=== PATIENT | male | born 1965 | race Caucasian/White ===

== ENCOUNTER → 2016-09-23 | Outpatient (CLI) | payer OTHER ==
[2014-01-17 18:26] VITALS: BP 130/68
[2016-09-23 07:11] LABS: BASO % 1 % (0-3); EOS % 2 % (0-3); HEMOGLOBIN 15.3 g/dL (13.0-17.5); LYMPH # 2.3 x10^3/uL (1.0-4.8); LYMPH % 48 % (24-48); MEAN CORPUSCULAR HEMOGLOBIN 31 pg (25-35); MEAN CORPUSCULAR HGB CONC 34 g/dL (31-37); MEAN CORPUSCULAR VOLUME 91 fL (79-100); MONO % 12 % (0-9); NEUT % 38 % (31-73); PLATELET COUNT 192 x10^3/uL (140-400); RED BLOOD COUNT 4.95 x10^6/uL (4.30-5.70); RED CELL DISTRIBUTION WIDTH 13.1 % (11.5-14.5); WHITE BLOOD COUNT 4.7 x10^3/uL (4.0-11.0)
[2016-09-23 07:33] LABS: ALBUMIN 3.9 g/dL (3.4-5.0); CALCIUM 9.1 mg/dL (8.5-10.1); GFR 78.8; POTASSIUM 3.9 mmol/L (3.5-5.1); TOTAL BILIRUBIN 0.5 mg/dL (0.2-1.0); TOTAL PROTEIN 7.8 g/dL (6.4-8.2)
[2016-09-23 07:34] LABS: CHOLESTEROL/HDL RATIO 4.9
[2016-09-23 08:10] LABS: FREE T4 0.83 ng/dL (0.76-1.46)
[2016-09-23 12:17] LABS: TESTOSTERONE TOTAL 438 ng/dL (264-916)
== END | disposition home or self-care (01) ==
LOC: LAB 06:42
PROVIDERS: ATTEND Internal Medicine
DX: Z12.5 Encounter for screening for malignant neoplasm of prostate (principal); Z00.00 Encounter for general adult medical examination without abnormal findings
CPT/HCPCS: 36415; 80053; 80061; 84403; 84439; 84443; 85027; G0103

== ENCOUNTER → 2016-11-08 | Outpatient (CLI) | payer OTHER ==
[2014-01-17 18:26] VITALS: BP 130/68
--- NOTE | 2016-11-08 12:48 | RAD ---
Cervical spine, 3 views, 11/08/2016: History: Neck and shoulder pain No fracture or dislocation is identified. The intervertebral disc spaces are well-maintained. There are mild degenerative changes involving scattered facet joints. There are small cervical ribs, right greater than left. The prevertebral soft tissues are unremarkable. IMPRESSION: 1. Mild degenerative change at scattered facet joints. 2. No acute cervical spine abnormality is detected.
== END | disposition home or self-care (01) ==
LOC: RAD 06:54
PROVIDERS: ATTEND Internal Medicine
DX: S16.1XXA Strain of muscle, fascia and tendon at neck level, initial encounter (principal); X58.XXXA Exposure to other specified factors, initial encounter; Y93.89 Activity, other specified; Y92.89 Other specified places as the place of occurrence of the external cause; Y99.8 Other external cause status
CPT/HCPCS: 72040

== ENCOUNTER → 2016-11-19 | Outpatient (CLI) | payer OTHER ==
[2014-01-17 18:26] VITALS: BP 130/68
--- NOTE | 2016-11-19 12:46 | KCIC ---
MR of the right elbow Indication: Pain for a few months. Technique: Standard multiplanar sequences are obtained. Findings: Mild motion degradation. Anterior: Mild signal within the biceps tendon, with mild surrounding fluid, at the radial attachment compatible with mild tendinosis. No rupture or high-grade tear. Brachialis tendon is intact. Posterior: The triceps tendon and insertion are intact. Medial: Common flexor tendon and ulnar collateral ligament are intact. Lateral: Mild common extensor tendinosis without measurable tear. Radial collateral and lateral ulnar collateral ligaments are intact. Fluid: No significant effusion. Joints: No advanced DJD. Bones: No focal lesion. No acute fracture. Soft tissues: No concerning edema or fluid accumulation Ulnar nerve: Unremarkable Impression: 1. Mild insertional biceps tendinosis without high-grade tear or rupture. 2. Mild common extensor tendinosis. Electronically signed by: Dao Godwin MD (11/19/2016 12:43 PM) [facility]
--- NOTE | 2016-11-19 13:30 | KCIC ---
MR of the right wrist Indication: Pain for a few months. Technique: Standard multiplanar sequences are obtained. Findings: Triangular fibrocartilage: Intact. Ulnar minus variance. Extensor carpi ulnaris tendon: Tendinosis with mild increased signal. No dislocation or rupture. Other extensor compartments: Intact Flexor tendons: Intact Median nerve: Unremarkable Scapholunate ligament: Mild degenerative signal, but no evidence of a through and through tear. No significant lunate tilt. Lunotriquetral ligament: No evidence of a tear. Fluid: No significant effusion. Joints: No advanced DJD. Bones: No lesion or acute fracture Soft tissues: Small pocket of fluid just proximal to the pisotriquetral joint measuring 5 mm, may represent a very small ganglion versus fluid in a synovial recess from the joint. Impression: 1. Mild extensor carpi ulnaris tendinosis. 2. Mild degenerative scapholunate ligament signal without evidence of an actual tear. Electronically signed by: Dao Godwin MD (11/19/2016 1:26 PM) [facility]
--- NOTE | 2016-11-19 13:30 | KCIC ---
MRI Cervical Spine Without Contrast History: Right cervical radiculitis, right arm and neck pain for a few months Technique: Multiplanar, multi sequential noncontrast MR imaging was performed of the cervical spine. Comparison: None Findings: There is some motion degradation. Cervical vertebral body stature is preserved. There is negligible anterior spondylolisthesis C4-5. Intervertebral disc spaces are mostly preserved, minimal narrowing at C4-5. Cervical cord caliber is within normal limits without focal signal abnormality. There is no significant abnormality cervical medullary junction. C2-C3: Spinal canal and neural foramina are adequate. C3-C4: Neural foramina and spinal canal are adequate. C4-C5: There is severe right facet hypertrophic change. Spinal canal and left neural foramen are adequate. There is moderate to severe narrowing of the right neural foramen. C5-C6: Spinal canal is adequate. There is moderate to severe facet hypertrophic change bilaterally. There is mild posterior narrowing of the neural foramina greater on the left. C6-C7: Spinal canal and neural foramina are adequate. There is bilateral facet hypertrophic change. C7-T1: Neural foramina and spinal canal are adequate. Impression: 1. There is no significant cervical spinal stenosis. 2. There is mild degenerative disc disease C4-5. 3. There is negligible anterior spondylolisthesis at C4-5. There is multilevel facet degenerative change. 4. There is moderate to severe narrowing of the right C4-5 neural foramen, minimal narrowing bilaterally at C5-6. Electronically signed by: Finesse Perez MD (11/19/2016 1:26 PM) [email or web address]
== END | disposition home or self-care (01) ==
LOC: KCIC MRI 11:23
PROVIDERS: ATTEND Internal Medicine
DX: M50.11 Cervical disc disorder with radiculopathy, high cervical region (principal); M43.12 Spondylolisthesis, cervical region
CPT/HCPCS: 72141; 73221

== ENCOUNTER → 2017-01-03 | Outpatient (CLI) | payer OTHER ==
[2014-01-17 18:26] VITALS: BP 130/68
[~2017-01-03] MED LIST: IOHEXOL 180 MG/ML 10 ML VIAL. ONE; methylPREDNISolone ACETATE 40 MG/ML VIAL. ONE; methylPREDNISolone ACETATE 80 MG/ML VIAL. ONE
--- NOTE | 2017-01-03 18:15 | PAIN ---
DATE OF SERVICE: 01/03/2017 INITIAL CONSULTATION CHIEF COMPLAINT: Neck and right upper extremity pain. HISTORY OF PRESENT ILLNESS: This is a 51-year-old male who presents with history of pain in the base of the neck and right upper extremity for about 2 to 3 months without any specific injury or action he is aware of. It happed fairly suddenly, but without any injury. The patient reports radiating from the base of the neck in the right shoulder also in the superior aspect as well as the anterior, posterior into the anterior aspect of the right upper arm occasionally with some pain in the right forearm and elbow mostly in the shoulder and neck itself. The patient reports it is sharp, stabbing, throbbing, shooting, changes during the day, worse with activity, worse with repetitive motions of the hands or reaching above his hand also difficulty sleeping as it is causing some pain that awaken him from sleep about every 4-5 hours. The patient reports it does not affect his bowel or bladder control or his ability to walk, but has some significant pain with sleeping, repetitive motion of the upper extremity. The patient is very active and is beginning to inhibit his activities of daily living and working is becoming more uncomfortable to the extent as well. The patient has had some physical therapy done which was helpful, but mostly just stretching exercises, has also had a MRI, EMG and MRI of cervical spine showing at C4-C5, severe right facet hypertrophic changes in the spinal canal, left neural foraminal adequate with moderate to severe narrowing of the right neural foramen, and bilateral foraminal narrowing at the C5-C6 level, but only minimally. The patient rates his disability ranging from 0-10, 10 being the worst. It is 0 with family and home responsibilities, 2 with recreation, and 0 with social activity, occupation can be as high as a 5, 0 with sexual behavior, self care and life support activities. The patient reports no loss of motor function with significant pain is somewhat fatigability in the right arm compared to the left with motion and repetitive motion. PAST MEDICAL HISTORY: Significantly for only the current pain condition. No significant medical history. No previous surgeries. The patient rates his pain a 4 on a scale of 10 at the worst with turning his head to the right side past 45 degrees. CURRENT MEDICATIONS: Include [id number] ibuprofen, Tylenol. No other medications, prescription that he is taking. ALLERGIES: The patient has no known drug allergies. FAMILY HISTORY: Significant for no major medical problems or conditions that he is aware of. 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 REVIEW OF SYSTEMS: The patient's review of systems is positive for those items mentioned in history of present illness. All systems reviewed and otherwise negative. It is complete, full and well documented on the patient's chart. PHYSICAL EXAMINATION: VITAL SIGNS: The patient's blood pressure is 113/80, pulse is 76, respirations 16, temperature 98.1 degrees Fahrenheit. Height 5 feet 10 inches, weight is 207 pounds. GENERAL: The patient is awake, alert, oriented, appropriate, very pleasant demeanor. HEENT: Head shows normocephalic, atraumatic. Extraocular movements are intact and symmetrical. Oral cavity shows mucous membranes moist and pink. Dentition is intact. NECK: Shows anterior throat supple without palpable lymphadenopathy noted. Swallow reflex is symmetrical. CHEST: Shows normal on inspection. Breath sounds clear to auscultation bilaterally. HEART: Shows S1 and S2 clear. ABDOMEN: Soft, nontender, nondistended. No palpable organomegaly is noted. No rebound or guarding demonstrated. BACK: Shows spine grossly midline, normal-appearing cervical lordotic curvature, thoracic kyphotic curvature, and lumbar lordotic curvature. Cervical paraspinous musculature is symmetrical with inspection. On palpation shows some mild tenderness with inferior aspect of the right side of the superior and medial trapezius as well as the inferior cervical paraspinous musculature, but the left side is nontender. The patient shows full rotational motion of cervical spine, both laterally greater than 45 degrees right and left with some minor pain reported with 45 degrees rotation in the past on the right side, but not to the left with full extension, full forward flexion was performed without significant pain reported. Upper extremities showed deep tendon reflexes 2+ in the biceps and triceps tendons. Motor exam is strong with 5/5 youth associate strength, biceps and triceps flexion and are symmetrical. Peripheral pulses are 2+ radial distribution. No peripheral edema is noted. No clubbing, no cyanosis. The patient's shoulder shrug is strong and intact without loss of strength on resistance. The patient reports some mild discomfort with resistance on the right side in the base of the neck and shoulder, but not radiating into the arm. This is true with abduction of the shoulder to 90 degrees with no loss of strength or resistance, some mild pain in the base of the right neck and shoulder, on the right side only. The patient's skin shows warm and dry, no edema, no previous bruises, lesions or rashes. IMPRESSION: 1. This is a 51-year-old male with approximately a 2-3 month history of increasing pain in the base of the neck and right upper extremity in a radicular fashion. 2. MRI scan of cervical spine as noted. PLAN: Options were discussed with the patient including conservative medical management, physical therapy, interventional techniques and he would like to pursue interventional techniques. We discussed a cervical epidural steroid injection using description as well as anatomical models to describe the procedure. Risks were then discussed including, but not limited to bleeding, infection, possibility of epidural hematoma, subsequent neurologic compromise, dural puncture, headaches, spinal cord and/or nerve damage, side effects of steroid medication and poor results regarding pain control. The patient understands and wishes to proceed. The patient will return to clinic in approximately 2 weeks for followup, was counseled on return appointment, activity level and side effects to be aware of. DIAGNOSES: Cervical radiculopathy with cervical degenerative disk disease. PROCEDURE: Cervical epidural steroid injection in translaminar approach at the C6-C7 level using C-arm fluoroscopic guidance and a sterile prep and drape using local anesthetic. MEDICATIONS INJECTED: A total of 120 mg Depo-Medrol plus 5 preservative-free normal saline and 2 mL contrast. CONDITION AT DISCHARGE: Stable. The patient tolerated procedure well, had no complications. JOHNNA PARKS MD DR: RAYA/santhosh JOB#: [id number] / [id number]
== END | disposition home or self-care (01) ==
LOC: PNCL 12:45
PROVIDERS: ATTEND Anesthesiology
DX: M50.123 Cervical disc disorder at C6-C7 level with radiculopathy (principal)
CPT/HCPCS: 62321; J1030; J1040

== ENCOUNTER → 2017-01-18 | Outpatient (CLI) | payer OTHER ==
[2014-01-17 18:26] VITALS: BP 130/68
--- NOTE | 2017-01-19 01:01 | PAIN ---
DATE OF SERVICE: 01/18/2017 DIAGNOSES: Cervical radiculopathy, cervical degenerative disk disease. HISTORY OF PRESENT ILLNESS: The patient is a 51 male who returns for followup status post cervical epidural steroid injection x 1. The patient with an 80% improvement until about the last 4-5 days. The patient reports pain is beginning to return in the base of his neck and shoulder, a little more on the right than the left only with excessive repetitive motion with the right upper extremity and activity, also awakened from sleep occasionally, but not every night. The patient reports the pain is a 6 on a scale of 10 at its worst, is a 3 at average and is a 2 at its least and it is a 2 currently. The patient reports still some aching and dull pain occasionally tight and shooting with some radiating pain, but it has been off and on and it has been much more tolerable after his last injection he has been increasing activity with greater ease and comfort, sleeping usually sleeps on his right side, which has been bothering the neck and the shoulder to some extent, but not every night until the last 4-5 days as noted. The patient reports no new motor or sensory deficits, no new changes. PHYSICAL EXAMINATION: VITAL SIGNS: Today, the patient's blood pressure is 130/82, pulse 67, respirations 18, temperature 98.1 degrees Fahrenheit. Height 5 feet 10 inches, weight is 206 pounds. GENERAL: The patient is awake, alert, oriented, appropriate, very pleasant demeanor. HEENT: Head shows normocephalic, atraumatic. Extraocular movements are intact, symmetrical. Oral cavity shows mucous membranes moist and pink. Dentition is intact. NECK: Shows anterior throat supple without palpable lymphadenopathy noted. Swallow reflex is symmetrical. CHEST: Shows normal with inspection. Breath sounds clear to auscultation bilaterally. HEART: Shows S1, S2 clear. No murmurs auscultated. ABDOMEN: Soft, nontender, nondistended. No palpable organomegaly is noted. No rebound or guarding demonstrated. BACK: Shows spine grossly in the midline, normal appearing cervical lordotic curvature, thoracic kyphotic curvature, and lumbar lordotic curvature. Cervical paraspinous musculature shows symmetrical inspection with palpation shows some moderate tenderness only diffusely in the middle and lower distribution of paraspinous muscles, slightly more on the right than the left, but without radiation, without trigger points. The patient has full rotational motion of cervical spine, both laterally greater than 45 degrees right and left well as extension and full forward flexion without pain or difficulty reported. EXTREMITIES: Upper extremities show deep tendon reflexes at 2+ in the biceps, triceps tendons. Motor exam is strong with 5/5 news editor strength, bicep and tricep flexion and symmetrical. Peripheral pulses are 2+ radial distribution. No peripheral edema is noted. Options were discussed with the patient. The patient's old chart was reviewed. His current medication regimen updated. Current review of systems updated today as well and we will proceed with a second cervical epidural steroid injection today with fluoroscopic guidance. Risks were again discussed including, but not limited to bleeding, infection, possibility of epidural hematoma, subsequent neurologic compromise, dural puncture, headaches, spinal cord and/or nerve damage, side effects of steroid medication and poor results regarding pain control. The patient understands and wished to proceed. The patient will return to the clinic in approximately 2 weeks for followup. He was counseled to return appointment, activity level and side effects to be aware of. DIAGNOSIS: Cervical radiculopathy with cervical degenerative disk disease. PROCEDURE: Cervical epidural steroid injection, translaminar approach C6-C7 level using C-arm fluoroscopic guidance under sterile prep and drape using local anesthetic. Medication injected total of 120 mg Depo-Medrol plus 5 mL very preservative-free normal saline and 2 mL of isovue contrast. CONDITION AT DISCHARGE: Stable. The patient tolerated procedure well, had no complications. JOHNNA PARKS MD DR: RAYA/santhosh JOB#: [id number] / [id number]
== END ==
LOC: PNCL 13:04
PROVIDERS: ATTEND Anesthesiology
DX: M50.123 Cervical disc disorder at C6-C7 level with radiculopathy (principal)
CPT/HCPCS: 62321; J1030; J1040

== ENCOUNTER → 2019-03-23 | Day surgery (SDC) | payer OTHER ==
[~2019-03-23] MED LIST changes: -IOHEXOL 180 MG/ML 10 ML VIAL. ONE; +IV RINGERS,LACTATED 1000ML 1,000 ML IV ONE; +LIDOCAINE 2% PF 5 ML VIAL. ONE; +PROPOFOL 40 ML IV ONE; -methylPREDNISolone ACETATE 40 MG/ML VIAL. ONE; -methylPREDNISolone ACETATE 80 MG/ML VIAL. ONE
--- NOTE | 2019-03-23 08:00 | CONS ---
DATE OF CONSULTATION: REFERRING PHYSICIAN: Meenu Logan MD REASON FOR CONSULTATION: Colorectal screening. HISTORY OF PRESENT ILLNESS: This is a 53-year-old male whose past medical history is noncontributory, seen for a screening colonoscopy. There is a family history of colon cancer with his sister who is in her early 50s. There has been no diarrhea or constipation. No melena and/or hematochezia. Weight and appetite are stable and he is otherwise without additional complaints. PAST MEDICAL HISTORY: Noncontributory. ALLERGIES: None. MEDICATIONS: None. FAMILY AND SOCIAL HISTORY: Significant for colon cancer with his sister recently. REVIEW OF SYSTEMS: Per records. PHYSICAL EXAMINATION: GENERAL: Reveals a well-nourished, well-developed male who is alert and cooperative, in no acute distress. VITAL SIGNS: Temperature 97.7, pulse 60 and respirations 20. LUNGS: Clear. CARDIOVASCULAR: Reveals an S1, S2 without S3, S4 or appreciable murmur. ABDOMEN: Reveals a soft abdomen, normal bowel sounds, without appreciable hepatosplenomegaly. EXTREMITIES: Reveals no cyanosis, clubbing or edema. IMPRESSION: Colorectal screening is warranted at this time. Risks and benefits of procedure including risk of hemorrhage and perforation requiring operation were discussed. The patient is willing to proceed. ZAID WORKMAN MD DR: MYRANDA/santhosh JOB#: [id number] / [id number] MEENU Montoya MD
[2019-03-23 08:02] VITALS: BP 117/72
== END | disposition home or self-care (01) ==
LOC: ENDOS 06:29
PROVIDERS: ATTEND Internal Medicine Gastroenterology
DX: Z12.11 Encounter for screening for malignant neoplasm of colon (principal); K64.0 First degree hemorrhoids; K57.30 Diverticulosis of large intestine without perforation or abscess without bleeding; E66.9 Obesity, unspecified; Z68.44 Body mass index [BMI] 60.0-69.9, adult; Z80.0 Family history of malignant neoplasm of digestive organs
CPT/HCPCS: 45378; J2001; J2704

== ENCOUNTER 2019-04-26 21:32 | Emergency (ER) | payer OTHER ==
[~2019-04-26] VITALS: Ht 175.3 cm; Wt 96.0 kg
--- NOTE | 2019-04-26 21:58 | PHYS DOC ---
Past Medical History Past Medical History: No Pertinent History Past Surgical History: No Surgical History Smoking Status: Never Smoker Alcohol Use: None Drug Use: None Adult General Chief Complaint Chief Complaint: BACK PAIN - NO INJURY [facility] HPI Patient is a 53 year old male who presents secondary to complaint of progressive low back pain since yesterday without known injury or overuse. Patient complains of pain initially in the right lumbar region which then migrated to the left. He has no radiculopathy down the legs, no cell anesthesia, no loss of bowel or bladder control. His did give him 800 mg of Skelaxin, Tylenol, ibuprofen, [place] earlier with minimal relief. His pain is worse with movement. He has no tenderness to palpation. He denies dysuria or hematuria. Review of Systems Review of Systems All other ROS is negative unless otherwise stated in HPI Current Medications Current Medications Current Medications Medications (Trade) Dose Ordered Sig/Sandra Start Time Stop Time Status Last Admin Dose Admin Ketorolac Tromethamine (Toradol Im) 60 mg 1X ONCE 04/26/19 22:00 04/26/19 22:01 DC 04/26/19 22:16 60 MG Orphenadrine Citrate (Norflex) 60 mg 1X ONCE 04/26/19 22:00 04/26/19 22:01 DC 04/26/19 22:16 60 MG Prednisone (Prednisone) 50 mg 1X ONCE 04/26/19 22:00 04/26/19 22:01 DC 04/26/19 22:15 50 MG Allergies Allergies Allergies Coded Allergies Type Severity Reaction Last Updated Verified No Known Drug Allergies 03/23/19 No Physical Exam Physical Exam See above Constitutional: Well developed, well nourished, uncomfortable, moves slow, non- toxic appearance. [] HENT: Normocephalic, atraumatic, bilateral external ears normal, oropharynx moist, no oral exudates, nose normal. [] Eyes: PERRLA, EOMI, conjunctiva normal, no discharge. [] Neck: Normal range of motion, no tenderness, supple, no stridor. [] Cardiovascular:Heart rate regular rhythm, no murmur [] Lungs & Thorax: Bilateral breath sounds clear to auscultation [] Abdomen: Bowel sounds normal, soft, no tenderness, no masses, no pulsatile masses. [] Skin: Warm, dry, no erythema, no rash. [] Back: No tenderness, no CVA tenderness, lumbar pain b/l with movement Extremities: No tenderness, no cyanosis, no clubbing, ROM intact, no edema. [] Neurologic: Alert and oriented X 3, normal motor function, normal sensory function, no focal deficits noted. [] Current Patient Data Vital Signs Vital Signs Date Time Temp Pulse Resp B/P (MAP) Pulse Ox O2 Delivery O2 Flow Rate FiO2 04/26/19 21:35 98.6 86 18 151/82 (105) 99 Room Air 98.6 Lab Values Laboratory Tests Test 04/26/19 21:40 Urine Collection Type Unknown Urine Color Yellow Urine Clarity Clear Urine pH 6.0 Urine Specific [place] 1.010 Urine Protein Negative mg/dL (NEG-TRACE) Urine Glucose (UA) Negative mg/dL (NEG) Urine Ketones (Stick) Negative mg/dL (NEG) Urine Blood Negative (NEG) Urine Nitrite Negative (NEG) Urine Bilirubin Negative (NEG) Urine Urobilinogen Dipstick 0.2 mg/dL (0.2 mg/dL) Urine Leukocyte Esterase Negative (NEG) Urine RBC Occ /HPF (0-2) Urine WBC 0 /HPF (0-4) Urine Squamous Epithelial Cells Occ /LPF Urine Bacteria 0 /HPF (0-FEW) EKG EKG [] Radiology/Procedures Radiology/Procedures LUMBAR SPINE MIN 4V History: Low back pain. Technique: 5 views of the lumbar spine. Comparison: None. Findings: Normal vertebral body height and alignment. Mild multilevel degenerative disc changes. Multilevel facet arthropathy. Impression: 1. No acute osseous abnormality. 2. Mild multilevel lumbar spondylosis.[] Course & Med Decision Making Course & Med Decision Making Pertinent Labs and Imaging studies reviewed. (See chart for details) 2156: We'll obtain lumbar x-rays and give IM Toradol and Norflex and oral prednisone. Send urinalysis as well. 6: Patient's son better at this time. We'll start him on Flexeril, and temperature is and penicillin. Follow-up with primary care physician next week if symptoms are not improving. Dragon Disclaimer Dragon Disclaimer This electronic medical record was generated, in whole or in part, using a voice recognition dictation system. Departure Departure Impression: Primary Impression: Acute low back pain Disposition: HOME, SELF-CARE Condition: STABLE Referrals: MICHELLE OSMAN MD (PCP) Follow-up next week if you have ongoing symptoms. Patient Instructions: Back Pain, Adult Scripts Prednisone (PREDNISONE) 50 Mg Tablet 1 TAB PO DAILY, #5 TAB Prov: SABINA EVANS DO 04/26/19 Diclofenac Sodium (DICLOFENAC SODIUM) 75 Mg Tablet.dr 1 TAB PO BID for 10 Days, #20 TAB 1 Refill Prov: SABINA EVANS DO 04/26/19 Cyclobenzaprine Hcl (CYCLOBENZAPRINE HCL) 10 Mg Tablet 1 TAB PO TID, #21 TAB Prov: SABINA EVANS DO 04/26/19 SABINA EVANS DO Apr 26, 2019 21:57
[2019-04-26] MEDS ORDERED: ORPHENADRINE CITRATE 60 MG/2 ML VIAL. IM ONE (22:00)
[2019-04-26] MEDS ORDERED: predniSONE 10 MG TABLET PO ONE (22:00)
[2019-04-26] MEDS ORDERED: KETOROLAC 60 MG/2 ML VIAL. IM ONE (22:00)
[2019-04-26 22:05] LABS: BILIRUBIN,URINE NEGATIVE (NEG); CLARITY,URINE CLEAR; COLOR,URINE YELLOW; NITRITE,URINE NEGATIVE (NEG); PROTEIN,URINE NEGATIVE (NEG-TRACE); UROBILINOGEN,URINE 0.2 mg/dL (0.2 mg/dL)
[2019-04-26 22:14] LABS: BACTERIA,URINE 0 /HPF (0-FEW); RBC,URINE OCC /HPF (0-2); SQUAMOUS EPITHELIAL CELL,UR OCC /LPF; WBC,URINE 0 /HPF (0-4)
--- NOTE | 2019-04-26 23:22 | RAD ---
LUMBAR SPINE MIN 4V History: Low back pain. Technique: 5 views of the lumbar spine. Comparison: None. Findings: Normal vertebral body height and alignment. Mild multilevel degenerative disc changes. Multilevel facet arthropathy. Impression: 1. No acute osseous abnormality. 2. Mild multilevel lumbar spondylosis. Electronically signed by: Deep Mejía DO (04/26/2019 11:19 PM) [id number]
[2019-04-26] MEDS ORDERED: DICL75TA PO (23:29)
[2019-04-26] MEDS ORDERED: CYCL10TA2 PO (23:29)
[2019-04-26] MEDS ORDERED: PRED50TA PO (23:29)
[2019-04-26 23:30] VITALS: BP 130/88
== END 2019-04-26 23:31 | disposition home or self-care (01) ==
LOC: ER 21:32
DX: M54.5 Low back pain (principal)
CPT/HCPCS: 72110; 81001; 96372; 99284; J1885; J2360; J7512

== ENCOUNTER → 2019-04-26 | Outpatient (CLI) | payer OTHER ==
[2019-03-23 08:02] VITALS: BP 117/72
[~2019-04-26] MED LIST changes: +CYCL10TA2 PO; +DICL75TA PO; -IV RINGERS,LACTATED 1000ML 1,000 ML IV ONE; -LIDOCAINE 2% PF 5 ML VIAL. ONE; +PRED50TA PO; -PROPOFOL 40 ML IV ONE
[2019-04-26 07:43] LABS: BASO % 1 % (0-3); EOS # 0.1 x10^3/uL (0.0-0.7); EOS % 2 % (0-3); HEMATOCRIT 46.1 % (39.0-53.0); HEMOGLOBIN 15.7 g/dL (13.0-17.5); LYMPH # 2.1 x10^3/uL (1.0-4.8); LYMPH % 51 % (24-48); MEAN CORPUSCULAR HEMOGLOBIN 31 pg (25-35); MEAN CORPUSCULAR HGB CONC 34 g/dL (31-37); MEAN CORPUSCULAR VOLUME 91 fL (79-100); MONO # 0.5 x10^3/uL (0.0-1.1); MONO % 11 % (0-9); NEUT # 1.5 x10^3/uL (1.8-7.7); NEUT % 36 % (31-73); PLATELET COUNT 237 x10^3/uL (140-400); RED BLOOD COUNT 5.07 x10^6/uL (4.30-5.70); RED CELL DISTRIBUTION WIDTH 13.4 % (11.5-14.5); WHITE BLOOD COUNT 4.2 x10^3/uL (4.0-11.0)
[2019-04-26 08:11] LABS: ALBUMIN 3.9 g/dL (3.4-5.0); ALBUMIN/GLOBULIN RATIO 1.1 (1.0-1.7); CALCIUM 9.3 mg/dL (8.5-10.1); GFR 78.2; POTASSIUM 4.2 mmol/L (3.5-5.1); TOTAL BILIRUBIN 0.4 mg/dL (0.2-1.0); TOTAL PROTEIN 7.4 g/dL (6.4-8.2)
[2019-04-26 08:13] LABS: CHOLESTEROL/HDL RATIO 4.2
== END | disposition home or self-care (01) ==
LOC: LAB 07:07
PROVIDERS: ATTEND Family Medicine
DX: R07.89 Other chest pain (principal)
CPT/HCPCS: 36415; 80053; 80061; 84436; 84443; 85025

== ENCOUNTER → 2019-08-15 | Outpatient (CLI) | payer OTHER ==
--- NOTE | 2019-08-15 11:34 | CARD ---
MR#: [id number] Date of Study: 08/15/2019 Ordering Physician: MARGARET BEAVERS, Referring Physician: MARGARET BEAVERS, Tech: Connie Waggoner [facility] APPROVED REPORT EXAM: Two-dimensional and M-mode echocardiogram with Doppler and color Doppler. Other Information Quality : Good INDICATION Chest Pain 2D DIMENSIONS RVDd3.0 (2.9-3.5cm)Left Atrium(2D)3.5 (1.6-4.0cm) IVSd0.9 (0.7-1.1cm)Aortic Root(2D)3.0 (2.0-3.7cm) LVDd4.9 (3.9-5.9cm)LVOT Diameter2.2 (1.8-2.4cm) PWd0.9 (0.7-1.1cm)LVDs3.5 (2.5-4.0cm) FS (%) 30.0 %SV65.6 ml LVEF(%)57.0 (>50%) Aortic Valve AoV Peak Yonathan.143.4cm/sAoV VTI23.7cm AO Peak GR.8.2mmHgLVOT Peak Yonathan.153.5cm/s AO Mean GR.4mmHgAVA (VMAX)4.02cm2 MADDY (VTI)4.54fm5UQ P 1/2 [id number] Mitral Valve MV E Lhayefjd10.8cm/sMV DECEL IWLK626vs MV A Yhvgzfyo53.5cm/sE/A Ratio0.7 Tricuspid Valve TR P. Fjdjutva947sx/sRAP ZFDYRMSQ3fyMg TR Peak Gr.76dcSaHBSR93yfTq Pulmonary Vein S1 Tcgznxgy05.5cm/sD2 Twczarac37.7cm/s LEFT VENTRICLE The left ventricle is normal size. There is normal left ventricular wall thickness. Left ventricle sy stolic function is normal. The Ejection Fraction is 55%. There is normal LV segmental wall motion. Tr ansmitral Doppler flow pattern is Grade I-abnormal relaxation pattern. RIGHT VENTRICLE The right ventricle is normal size. The right ventricular systolic function is normal. ATRIA The left atrium size is normal. The right atrium size is normal. The interatrial septum is intact wit h no evidence for an atrial septal defect or patent foramen ovale as noted on 2-D or Doppler imaging. AORTIC VALVE The aortic valve is calcified but opens well. Doppler and Color Flow revealed trace aortic regurgitat ion. There is no significant aortic valvular stenosis. MITRAL VALVE The mitral valve is normal in structure and function. There is no evidence of mitral valve prolapse. There is no mitral valve stenosis. Doppler and Color-flow revealed trace mitral regurgitation. TRICUSPID VALVE The tricuspid valve is normal in structure and function. Doppler and Color Flow revealed trace tricus pid regurgitation. The PA pressure was estimated at 22 mmHg. There is no tricuspid valve stenosis. PULMONIC VALVE The pulmonary valve is normal in structure and function. Doppler and Color Flow revealed no pulmonic valvular regurgitation. There is no pulmonic valvular stenosis. GREAT VESSELS The aortic root is normal in size. The ascending aorta is normal in size. The IVC is normal in size a nd collapses >50% with inspiration. PERICARDIAL EFFUSION There is no evidence of significant pericardial effusion. Critical Notification Critical Value: No <Conclusion> Left ventricle systolic function is normal. The Ejection Fraction is 55%. There is normal LV segmental wall motion. Transmitral Doppler flow pattern is Grade I-abnormal relaxation pattern. Trace mitral regurgitation. Trace tricuspid regurgitation. The PA pressure was estimated at 22 mmHg. There is no evidence of significant pericardial effusion. Signed by : Peter Ballesteros, Electronically Approved : 08/15/2019 11:34:09
--- NOTE | 2019-08-15 11:54 | RAD ---
MR#: [id number] Date of Study: 08/15/2019 Ordering Physician: MARGARET BEAVERS, Referring Physician: MARYLU CRAIG Tech: RT Brayden (R) (N) APPROVED REPORT Test Type: Exercise Stress Nurse/Tech: Irena Charles RN Test Indications: Chest Pain Cardiac History: No known cardiac Medications: See Electronic Medical Record Medical History: See Electronic Medical Record Resting ECG: SR Resting Heart Rate: 61 bpm Resting Blood Pressure: 128/77mmHg Pretest Chest Pain: No chest pain Nurse/Tech Notes S1,S2 and lungs clear to auscultation. Consent: The procedure was explained to the patient in lay terms. Informed consent was witnessed. Miguel eout was entered into [employer]. History and Stress Test performed by SHAHID Mandujano Stress Symptoms Fatigue POST EXERCISE Reason for Termination: Reached target heart rate, Fatigue Target HR: Yes Max HR: 157 bpm 111% of Maximum Predicted HR: 141 bpm Exercise duration: 10:00 min:sec, 4 Stage Exercise capacity: 13.4METs Max Blood Pressure: 146/70mmHg Blood Pressure response to exercise: Normal blood pressure response during stress. Heart Rate response to exercise: WNL Chest Pain: No. Arrhythmia: No. ST Change: Yes. Very slight ST elevation in leads v3-v5 with exercise which returned to baseline by e nd of study INTERPRETATION Stress EKG Conclusion: Baseline EKG showed sinus rhythm. Non-diagnostic changes at peak stress. No arrhythmias. Imaging Protocol IMAGE PROTOCOL: Rest Tc-99m/stress Tc-99m 1 day Rest: Stress: Viability: Radiopharm.Tc99m KqcdtvpocYs98r Sestamibi Opcg29hIc 30.4mCi Duration 15min. 10min. Img Date 08/15/2019 08/15/2019 Inj-Img Upbm39cgk. 60min. Rest Admin Site:IV - Right WristAdministrator:SHAHID Mandujano Stress Admin Site: IV - Right WristAdministrator: SHAHID Mandujano STRESS DATA End Diast. Vol.106.0mlLVEDV index BSA51.0ml End Syst. Vol.35.0mlLVESV index BSA17.0ml Myocardial Fjli171.0gEject. Sqbiwgtf38.0% Stress Scores Regional WT1.00Summed WT6.00 Regional WM0.00Summed WM2.00 Study quality was good. Left Ventricular size was Normal at Rest and Stress. Lung uptake was . Left Ventricular ejection fraction is 67%. The rest and stress images show normal perfusion, normal contraction and thickening. LV Perf. Quant 17 Seg. SSS6.00 17 Seg. SRS1.00 17 Seg. SDS5.00 Stress Defect Extent (% LAD)13.80Rest Defect Extent (% LAD)6.90Rev. Defect Extent (% LAD)0.00 Stress Defect Extent (% LCX) 0.00Rest Defect Extent (% LCX)0.00Rev. Defect Extent (% LCX)0.00 Stress Defect Extent (% RCA)1.10Rest Defect Extent (% RCA)0.00Rev. Defect Extent (% RCA)0.00 Stress Defect Extent (% QUINTON)5.00Rest Defect Extent (% QUINTON)2.40Rev. Defect Extent (% QUINTON)0.00 Conclusion 1. Treadmill exercise cardioisotope stress test did not show any evidence of ischemia or infarct. 2. Normal left ventricular systolic function with ejection fraction calculated at 67%. 3. Patient had good activity tolerance. Low risk for cardiac events. Signed by : Peter Ballesteros, Electronically Approved : 08/15/2019 11:53:26
== END | disposition home or self-care (01) ==
LOC: NM 08:06
PROVIDERS: ATTEND Internal Medicine Cardiovascular Disease
DX: R07.9 Chest pain, unspecified (principal)
CPT/HCPCS: 78452; 93017; 93306; A9500

== ENCOUNTER 2020-09-19 06:49 | Emergency (ER) | payer OTHER ==
[~2020-09-19] VITALS: Ht 180.3 cm; Wt 93.1 kg
--- NOTE | 2020-09-19 07:32 | PHYS DOC ---
Past Medical History Past Medical History: No Pertinent History Past Surgical History: No Surgical History Smoking Status: Never Smoker Alcohol Use: None Drug Use: None General Adult EDM: Chief Complaint: ANKLE PROBLEM HPI: HPI: 55-year-old male who denies any significant past medical history presents the ED with complaints of left medial ankle pain has been progressively worsening for the past 3 weeks, minimal relief with Tylenol ibuprofen. States he woke up today and felt as if the ankle is more swollen. Also complains of left heel pain, worse with weight bearing but states he can tolerate the pain. Is very active, "I never go to doctors and I don't like taking medications, but I want to get it checked out." No history of prior injury to this joint. No history of gout, pseudogout, osteoarthritis or rheumatoid arthritis. No associated fever, chills, dysuria, hematuria, urethral discharge, rash or increased warmth to the joint. Tennis shoes are only 6 months old. Cannot recall and new increased physical activity, trauma to the joint, running or new exercise program. is an rn in the ed. Review of Systems: Review of Systems: Constitutional: Denies fever or chills. [] Eyes: Denies change in visual acuity. [] HENT: Denies nasal congestion or sore throat. [] Respiratory: Denies cough or shortness of breath. [] Cardiovascular: Denies chest pain or edema. [] GI: Denies nausea, vomiting, : Denies dysuria or hematuria Musculoskeletal: Denies back pain or joint deformity Integument: Denies rash or diaphoresis Neurologic: Denies focal weakness or sensory changes. [] Lymphatic: Denies swollen glands. [] Psychiatric: Denies depression or anxiety. [] Heart Score: C/O Chest Pain: No Risk Factors: Risk Factors: DM, Current or recent (<one month) smoker, HTN, HLP, family history of CAD, obesity. Risk Scores: Score 0 - 3: 2.5% MACE over next 6 weeks - Discharge Home Score 4 - 6: 20.3% MACE over next 6 weeks - Admit for Clinical Observation Score 7 - 10: 72.7% MACE over next 6 weeks - Early Invasive Strategies Allergies: Allergies: Allergies Coded Allergies Type Severity Reaction Last Updated Verified No Known Drug Allergies 03/23/19 No Physical Exam: PE: Constitutional: Well developed, well nourished, healthy active male HENT: Normocephalic, atraumatic, Eyes: EOMI, conjunctiva normal, no discharge. Neck: Normal range of motion, supple, Cardiovascular: S1/2 present, regular rhythm Lungs & Thorax: Speaking in full sentences, bilateral equal chest rise, no tachypnea or increased work of breathing Skin: Warm, dry, no erythema, no rash. [] Extremities: no cyanosis, no lower extremity edema, right DP/PT pulses intact, no pain at right fibular head or knee or malleoli, pain is localized to the base of the calcaneus and just inferior to right medial malleoli, no plantar ecchymosis, is able to bear weight/normal plantarflexion and dorsiflexion, L5-S1 sensation intact, cap refill less than 1 second Neurologic: Alert and oriented X 3, normal motor function, normal sensory function, no focal deficits noted. [] Psychologic: Affect normal, judgement normal, mood normal. [] EKG: EKG: [] Radiology/Procedures: Radiology/Procedures: []IMAGING REPORT Signed PATIENT: LONNY LAYNE ACCOUNT: [id number] : 1965 LOCATION: ER AGE: 55 SEX: M EXAM STATUS: REG ER ORD. PHYSICIAN: BHANU MILLS DO REASON: left ankle apin PROCEDURE: FOOT LEFT 3V EXAM: XR FOOT_LEFT 3 VIEWS, XR EXAM OF ANKLE_LEFT 3V 09/19/2020 7:45 AM CLINICAL INDICATION: Left ankle pain COMPARISON: None TECHNIQUE: 3 views of the left foot and 3 views of the left ankle FINDINGS: Left foot: No acute fracture. Alignment is normal. Joint spaces are maintained. No soft tissue swelling. Left ankle: No acute fracture. Alignment is normal. The ankle mortise is symmetric and talar dome intact. No focal soft tissue abnormality. IMPRESSION: No acute osseous abnormality of the left ankle or left foot. Electronically signed by: Valentina Regan MD (09/19/2020 8:20 AM) [id number] DICTATED and SIGNED BY: VALENTINA REGAN MD DATE: 09/19/20 [id number] Course & Med Decision Making: Course & Med Decision Making Pertinent Labs and Imaging studies reviewed. (See chart for details) Concern for atraumatic left ankle and heel pain with no obvious fracture, bone spur or trauma on x-ray imaging. Labs with no leukocytosis, unremarkable uric acid level. Suspect overuse/poor foot support. Patient was splinted and given crutches and rice instructions. Will discharge home with strict ED return precautions were given for repeat injury, severe pain, neurologic deficits, skin color changes or swollen red hot swelling. Encouraged urgent outpatient follow- up with PMD and ortho prn for persistent pain, may benefit from repeat imaging if pain does not subside. Life-threatening processes were considered but are low suspicion at this time, given history, physical exam and ED workup. Pt was educated on all prescription medications and adverse effects. All patient's questions were answered and pt was stable at time of discharge. Life/limb-threatening differential includes but is not limited to, avascular necrosis, septic arthritis, malignancy, compartment syndrome, fracture/ligamentous injury/overuse, decompression sickness, seronegative spondyloarthropathies, trauma including dislocation/fracture, Lyme disease, lupus, arthritis differentials, gout/pseudogout or decompression sickness. I have spoken with the patient and/or caregivers. I explained the patient's condition, diagnoses and treatment plan based on the information available to me at this time. I have answered the patient and/or caregiver's questions and addressed any concerns. The patient and/or caregivers have a good understanding of patient's diagnosis, condition and treatment plan as can be expected at this point. Vital signs have been stable. Patient's condition is stable and appropriate for discharge from the emergency department. Patient will pursue further outpatient evaluation with primary care physician or other designated or consulting physician as outlined in the discharge instructions. The patient and/or caregivers are agreeable to this plan of care and follow-up instructions have been explained in detail. The patient and/or c aregivers have received these instructions in written form and have expressed an understanding of the discharge instructions. The patient and/or caregivers are aware that any significant change of condition or worsening of symptoms should prompt immediate return to this or the closest emergency department or call to 911. Alyssa Disclaimer: Alyssa Disclaimer: This electronic medical record was generated, in whole or in part, using a voice recognition dictation system. Departure Departure Impression: Primary Impression: Pain of left heel Additional Impression: Ankle pain, left Disposition: 01 HOME / SELF CARE / HOMELESS Condition: STABLE Referrals: MICHELLE OSMAN MD (PCP) for routine care, over the counter tylenol, ibuprofen or biofreeze prn for pain Patient Instructions: Ankle Pain, Crutch Use, RICE - Routine Care for Injuries Additional Instructions: FOLLOW UP WITH ORTHOPEDICS: FOR DEFINITIVE MANAGEMENT of ankle/heel pain, may benefit from repeat imaging Orthopaedic Sports Medicine Orthopaedic Surgery [facility] [address] [place], [address] [place] [address] OR [facility] [address], [place] [address] EMERGENCY DEPARTMENT GENERAL DISCHARGE INSTRUCTIONS Thank you for coming to [facility] Emergency Department (ED) today and trusting us with you care. We trust that you had a positive experience in our Emergency Department. If you wish to speak to the department management, you may call the Director at [phone]. YOUR FOLLOW UP INSTRUCTIONS ARE FOLLOWS: 1. Do you have a private Doctor? If you do not have a private doctor, please ask for a resource list of physicians or clinics that may be able to assist you with follow up care. ADDITIONAL INSTRUCTIONS AND INFORMATION: 1. Your care today has been supervised by a physician who is specially trained in emergency care. Many problems require more than one evaluation for a complete diagnosis and treatment. We recommend that you schedule your follow up appointment as recommended to ensure complete treatment of you illness or injury. If you are unable to obtain follow up care and continue to have a problem, or if your condition worsens, we recommend that you return to the ED. 2. We are not able to safely determine your condition over the phone nor are we able to give sound medical advice over the phone. For these safety reasons, if you call for medical advice we will ask you to come to the ED for further evaluation. 3. If you have any questions regarding these discharge instructions please call the ED at [phone]. SAFETY INFORMATION: In the interest of safety, wellness, and injury prevention; we encourage you to wear your sealbelt, if you smoke; quite smoking, and we encourage family to use a protective helmet for bicycling and other sporting events that present an increased risk for head injury. IF YOUR SYMPTOMS WORSEN OR NEW SYMPTOMS DEVELOP, OR YOU HAVE CONCERNS ABOUT YOUR CONDITION; OR IF YOUR CONDITION WORSENS WHILE YOU ARE WAITING FOR YOUR FOLLOW UP APPOINTMENT; EITHER CONTACT YOUR PRIMARY CARE DOCTOR, THE PHYSICIAN WHOSE NAME AND NUMBER YOU WERE GIVEN, OR RETURN TO THE ED IMMEDIATELY. [facility]ITAL[facility]ANU DO Sep 19, 2020 07:32
[2020-09-19 07:52] LABS: BASO % 1 % (0-3); EOS # 0.1 x10^3/uL (0.0-0.7); EOS % 2 % (0-3); HEMATOCRIT 42.8 % (39.0-53.0); HEMOGLOBIN 14.8 g/dL (13.0-17.5); LYMPH # 2.1 x10^3/uL (1.0-4.8); LYMPH % 48 % (24-48); MEAN CORPUSCULAR HEMOGLOBIN 31 pg (25-35); MEAN CORPUSCULAR HGB CONC 35 g/dL (31-37); MEAN CORPUSCULAR VOLUME 90 fL (79-100); MONO # 0.4 x10^3/uL (0.0-1.1); MONO % 10 % (0-9); NEUT # 1.7 x10^3/uL (1.8-7.7); NEUT % 39 % (31-73); PLATELET COUNT 230 x10^3/uL (140-400); RED BLOOD COUNT 4.75 x10^6/uL (4.30-5.70); RED CELL DISTRIBUTION WIDTH 12.9 % (11.5-14.5); WHITE BLOOD COUNT 4.5 x10^3/uL (4.0-11.0)
[2020-09-19] MEDS ORDERED: LIDOCAINE (700MG/PATCH) PATCH. TD SCH (08:00)
[2020-09-19 08:01] LABS: CALCIUM 9.1 mg/dL (8.5-10.1); CREATININE 0.9 mg/dL (0.7-1.3); GFR 87.6; POTASSIUM 4.1 mmol/L (3.5-5.1)
[2020-09-19 08:04] LABS: URIC ACID 4.5 mg/dL (3.5-7.2)
--- NOTE | 2020-09-19 08:23 | RAD ---
EXAM: XR FOOT_LEFT 3 VIEWS, XR EXAM OF ANKLE_LEFT 3V 09/19/2020 7:45 AM CLINICAL INDICATION: Left ankle pain COMPARISON: None TECHNIQUE: 3 views of the left foot and 3 views of the left ankle FINDINGS: Left foot: No acute fracture. Alignment is normal. Joint spaces are maintained. No soft tissue swelli ng. Left ankle: No acute fracture. Alignment is normal. The ankle mortise is symmetric and talar dome int act. No focal soft tissue abnormality. IMPRESSION: No acute osseous abnormality of the left ankle or left foot. Electronically signed by: Valentina Regan MD (09/19/2020 8:20 AM) [id number]
[2020-09-19 09:00] VITALS: BP 134/72
[2020-09-19] MEDS ORDERED: HYDROcodone/APAP 5/325MG 1 TAB TABLET PO ONE (09:00)
== END 2020-09-19 09:35 | disposition home or self-care (01) ==
LOC: ER 06:49
DX: M25.572 Pain in left ankle and joints of left foot (principal)
CPT/HCPCS: 29515; 36415; 73610; 73630; 80048; 84550; 85025; 99284